=== PATIENT | female | born 1980 | race Caucasian/White ===

== ENCOUNTER 2016-11-30 17:20 | Emergency (ER) | payer SELFPAY ==
[~2016-11-30] VITALS: Ht 165.1 cm; Wt 93.0 kg
[~2016-11-30 17:20] MED LIST: ALBU18HF IH; BENZ100C PO; FLUT12AE2 IH
[2016-11-30 17:30] VITALS: BP 132/79
--- NOTE | 2016-11-30 18:13 | ED.ADGEN ---
Past History Past Medical History: No Pertinent History Past Surgical History: Other Alcohol Use: None Drug Use: None Adult General Chief Complaint Chief Complaint Abdominal pain HPI HPI Patient is a 36 year old female who presents with left upper quadrant pain. She states that she has a history of GERD and has been under a lot of stress recently with her boyfriend breaking up with her and taking her stuff. She states this is symptoms been going on for several weeks and the last 2 days gotten worse. Last night she vomited several times. She denies any blood in her vomit, she denies any diarrhea. She states the pain is in the left upper quadrant and can wrap around to her back. She does have a history kidney stones. She denies any fevers chills or midline back pain. She states she doesn' t have any insurance and doesn't want a large bill. She states she's been taking [id number] antacids and nothing can make this better. Review of Systems Review of Systems Constitutional: Denies fever or chills [] Eyes: Denies change in visual acuity, redness, or eye pain [] HENT: Denies nasal congestion or sore throat [] Respiratory: Denies cough or shortness of breath [] Cardiovascular: No additional information not addressed in HPI [] GI: Deniesbloody stools or diarrhea, positive for abdominal pain, nausea, vomiting, : Denies dysuria or hematuria [] Musculoskeletal: Denies back pain or joint pain [] Integument: Denies rash or skin lesions [] Neurologic: Denies headache, focal weakness or sensory changes [] Endocrine: Denies polyuria or polydipsia [] Current Medications Current Medications Current Medications Medications (Trade) Dose Ordered Sig/Vi Start Time Stop Time Status Last Admin Dose Admin Multi-Ingredient Mouthwash/Gargle (Gi Cocktail) 20 ml 1X ONCE 11/30/16 18:15 11/30/16 18:16 DC 11/30/16 18:15 20 ML Allergies Allergies Allergies Coded Allergies Type Severity Reaction Last Updated Verified acetaminophen Allergy Unknown 03/10/16 Yes oxycodone Allergy Unknown 03/10/16 Yes paroxetine Allergy Unknown 03/10/16 Yes tranexamic acid Allergy Unknown 03/10/16 Yes Physical Exam Physical Exam Constitutional: Well developed, well nourished, no acute distress, non-toxic appearance. [] HENT: Normocephalic, atraumatic, bilateral external ears normal, oropharynx moist, no oral exudates, nose normal. [] Eyes: PERRLA, EOMI, conjunctiva normal, no discharge. [] Neck: Normal range of motion, no tenderness, supple, no stridor. [] Cardiovascular:Heart rate regular rhythm, no murmur [] Lungs & Thorax: Bilateral breath sounds clear to auscultation [] Abdomen: Bowel sounds normal, soft, mild tenderness palpation left upper quadrant, no rebound or guarding, no masses, no pulsatile masses. [] Skin: Warm, dry, no erythema, no rash. [] Back: Paraspinal back pain over the lumbar area, no midline tenderness. Tenderness, no CVA tenderness. [] Extremities: No tenderness, no cyanosis, no clubbing, ROM intact, no edema. [] Neurologic: Alert and oriented X 3, normal motor function, normal sensory function, no focal deficits noted. [] Psychologic: Affect normal, judgement normal, mood normal. [] Current Patient Data Vital Signs Vital Signs Date Time Temp Pulse Resp B/P (MAP) Pulse Ox O2 Delivery O2 Flow Rate FiO2 11/30/16 17:30 98.3 104 16 97 Room Air Lab Results Laboratory Tests Test 11/30/16 17:30 11/30/16 18:17 Urine Collection Type Unknown Urine Color Yellow Urine Clarity Hazy Urine pH 6.0 Urine Specific [place] >=1.030 Urine Protein 30 mg/dl (NEG-TRACE) Urine Glucose (UA) Neg mg/dL (NEG) Urine Ketones (Stick) Trace mg/dL (NEG) Urine Blood Neg (NEG) Urine Nitrite Neg (NEG) Urine Bilirubin Neg (NEG) Urine Urobilinogen Dipstick 0.2 mg/dL (0.2 mg/dL) Urine Leukocyte Esterase Neg (NEG) Urine RBC 1-2 /HPF (0-2) Urine WBC 5-10 /HPF (0-4) Urine Squamous Epithelial Cells Mod /LPF Urine Bacteria 0 /HPF (0-FEW) Urine Mucus Marked /LPF Urine Opiates Screen Neg (NEG) Urine Methadone Screen Neg (NEG) Urine Barbiturates Neg (NEG) Urine Phencyclidine Screen Neg (NEG) Urine Amphetamine/Methamphetamine Neg (NEG) Urine Benzodiazepines Screen Neg (NEG) Urine Cocaine Screen Neg (NEG) Urine Cannabinoids Screen Neg (NEG) Urine Ethyl Alcohol Neg (NEG) White Blood Count 9.2 x10^3/uL (4.0-11.0) Red Blood Count 4.26 x10^6/uL (3.50-5.40) Hemoglobin 13.4 g/dL (12.0-15.5) Hematocrit 38.9 % (36.0-47.0) Mean Corpuscular Volume 91 fL (79-100) Mean Corpuscular Hemoglobin 31 pg (25-35) Mean Corpuscular Hemoglobin Concent 34 g/dL (31-37) Red Cell Distribution Width 13.4 % (11.5-14.5) Platelet Count 257 x10^3/uL (140-400) Neutrophils (%) (Auto) 78 % (31-73) H Lymphocytes (%) (Auto) 15 % (24-48) L Monocytes (%) (Auto) 6 % (0-9) Eosinophils (%) (Auto) 0 % (0-3) Basophils (%) (Auto) 1 % (0-3) Neutrophils # (Auto) 7.2 x10^3uL (1.8-7.7) Lymphocytes # (Auto) 1.4 x10^3/uL (1.0-4.8) Monocytes # (Auto) 0.5 x10^3/uL (0.0-1.1) Eosinophils # (Auto) 0.0 x10^3/uL (0.0-0.7) Basophils # (Auto) 0.0 x10^3/uL (0.0-0.2) Sodium Level 141 mmol/L (136-145) Potassium Level 4.1 mmol/L (3.5-5.1) Chloride Level 105 mmol/L (98-107) Carbon Dioxide Level 24 mmol/L (21-32) Anion Gap 12 (6-14) Blood Urea Nitrogen 12 mg/dL (7-20) Creatinine 0.9 mg/dL (0.6-1.0) Estimated GFR (Cockcroft-Gault) 71.7 Glucose Level 97 mg/dL (70-99) Calcium Level 8.8 mg/dL (8.5-10.1) Total Bilirubin 0.9 mg/dL (0.2-1.0) Direct Bilirubin 0.2 mg/dL (0.0-0.2) Aspartate Amino Transferase (AST) 11 U/L (15-37) L Alanine Aminotransferase (ALT) 20 U/L (14-59) Alkaline Phosphatase 75 U/L (46-116) Creatine Kinase 40 U/L (26-192) Creatine Kinase MB (Mass) < 0.5 ng/mL (0.0-3.6) Creatine Kinase MB Relative Index 1.3 % (0-4) Troponin I Quantitative < 0.017 ng/mL (0-0.055) Total Protein 7.3 g/dL (6.4-8.2) Albumin 3.9 g/dL (3.4-5.0) Lipase 124 U/L (73-393) EKG EKG [] Radiology/Procedures Radiology/Procedures [] Course & Med Decision Making Course & Med Decision Making Pertinent Labs and Imaging studies reviewed. (See chart for details) GI cocktail didn't really help. Her labs do not show any acute abnormalities. We 'll discharge with cyclobenzaprine for her back pain suggesting muscle skeletal in nature, sulfa Carafate and Zofran. Patient's will need to follow-up with GI doctor but she doesn't have any insurance this time and states she was hold off until she gets insurance before she sees anybody. Return precautions given she is agreeable Plan B discharged in stable condition this time. Final Impression Final Impression Abdominal pain Problems: Dragon Disclaimer Dragon Disclaimer This electronic medical record was generated, in whole or in part, using a voice recognition dictation system. MARZENA PEREA MD Nov 30, 2016 18:13
[2016-11-30] MEDS ORDERED: LIDO:MAALOX 1:1 20 ML SINGLE DOSE PO ONE (18:15)
--- NOTE | 2016-11-30 18:29 | EKG ---
[address] [address] Test Date: 2016-11-30 Test Time: 18:26:47 Pat Name: NAYANA WANG Department: Room: Gender: F [employer]: BRISSA : 1980 Requested By: MARZENA PEREA Order Number: [id number] Reading MD: Giorgio Ellis Measurements Intervals [place] Rate: 78 P: 38 [place]: 134 QRS: 31 QRSD: 82 T: 27 QT: 354 QTc: 407 Interpretive Statements SINUS RHYTHM NONSPECIFIC ST-T WAVE CHANGES. RI6.01 Unconfirmed report Compared to ECG 03/10/2016 10:06:50 No significant changes Electronically Signed On 12-03-2016 9:53:36 CDT by Giorgio Ellis
[2016-11-30 18:30] LABS: BASO % 1 % (0-3); EOS % 0 % (0-3); HEMATOCRIT 38.9 % (36.0-47.0); HEMOGLOBIN 13.4 g/dL (12.0-15.5); LYMPH # 1.4 x10^3/uL (1.0-4.8); LYMPH % 15 % (24-48); MEAN CORPUSCULAR HEMOGLOBIN 31 pg (25-35); MEAN CORPUSCULAR HGB CONC 34 g/dL (31-37); MEAN CORPUSCULAR VOLUME 91 fL (79-100); MONO # 0.5 x10^3/uL (0.0-1.1); MONO % 6 % (0-9); NEUT # 7.2 x10^3uL (1.8-7.7); NEUT % 78 % (31-73); PLATELET COUNT 257 x10^3/uL (140-400); RED BLOOD COUNT 4.26 x10^6/uL (3.50-5.40); RED CELL DISTRIBUTION WIDTH 13.4 % (11.5-14.5); WHITE BLOOD COUNT 9.2 x10^3/uL (4.0-11.0)
[2016-11-30 18:33] LABS: BILIRUBIN,URINE NEG (NEG); CLARITY,URINE HAZY; COLOR,URINE YELLOW; GLUCOSE,URINE NEG (NEG); NITRITE,URINE NEG (NEG); UROBILINOGEN,URINE 0.2 mg/dL (0.2 mg/dL)
[2016-11-30 18:34] LABS: BACTERIA,URINE 0 /HPF (0-FEW); SQUAMOUS EPITHELIAL CELL,UR MOD /LPF
[2016-11-30 18:40] LABS: BARBITURATES NEG (NEG); BENZODIAZEPINES NEG (NEG); CANNABINOIDS NEG (NEG); COCAINE NEG (NEG); METHADONE NEG (NEG); OPIATES NEG (NEG); PHENCYCLIDINE NEG (NEG)
[2016-11-30 18:41] LABS: AMPHETAMINE/METHAMPHETAMINE NEG (NEG)
[2016-11-30 18:54] LABS: ALBUMIN 3.9 g/dL (3.4-5.0); ALK PHOS 75 U/L (46-116); ALT (SGPT) 20 U/L (14-59); ANION GAP 12 (6-14); AST (SGOT) 11 U/L (15-37); BLOOD UREA NITROGEN 12 mg/dL (7-20); CALCIUM 8.8 mg/dL (8.5-10.1); CARBON DIOXIDE 24 mmol/L (21-32); CHLORIDE 105 mmol/L (98-107); CREATINE KINASE 40 U/L (26-192); CREATININE 0.9 mg/dL (0.6-1.0); DIRECT BILIRUBIN 0.2 mg/dL (0.0-0.2); GFR 71.7; GLUCOSE 97 mg/dL (70-99); LIPASE 124 U/L (73-393); POTASSIUM 4.1 mmol/L (3.5-5.1); SODIUM 141 mmol/L (136-145); TOTAL BILIRUBIN 0.9 mg/dL (0.2-1.0); TOTAL PROTEIN 7.3 g/dL (6.4-8.2)
[2016-11-30] MEDS ORDERED: SUCR1TAB PO (20:03)
[2016-11-30] MEDS ORDERED: ONDA4TAB10 SL (20:03)
[2016-11-30] MEDS ORDERED: CYCL-331 PO (20:03)
== END 2016-11-30 20:10 | disposition home or self-care (01) ==
LOC: ER 17:20
DX: R10.12 Left upper quadrant pain (principal); Z88.6 Allergy status to analgesic agent; Z88.8 Allergy status to other drugs, medicaments and biological substances
CPT/HCPCS: 36415; 80048; 80076; 80305; 80320; 81001; 82553; 83690; 84484; 85027; 87086; 93005; G0481; 99285-25

== ENCOUNTER 2017-03-29 00:34 | Emergency (ER) | payer SELFPAY ==
[~2017-03-29] VITALS: Ht 165.1 cm; Wt 93.0 kg
[2017-03-29 00:34] VITALS: BP 128/76
[~2017-03-29 00:34] MED LIST changes: +CYCL-331 PO; +ONDA4TAB10 SL; +SUCR1TAB PO
--- NOTE | 2017-03-29 02:23 | PHYS DOC ---
General Chief Complaint: LOWEREXTREMITY INJURY Stated Complaint: FOOT INJURY Time Seen by MD: 00:34 Source: patient Exam Limitations: no limitations Problems: History of Present Illness Initial Comments Pt is 36/F to ED c/o left foot pain. Pt states tonight she jumped out of pickup truck bed landing on both feet. She felt sudden severe pain at her left foot and heard a pop. Complains of severe left foot pain across dorsal arch and at lateral aspect. Mild ecchymoses noted , no actual swelling. Can't bear weight due to pain, denies other injury. Although she says she can't move her foot or toes she does move all in response to pain during exam. No prearrival treatment no prior left foot injury. Refuses pain meds "I don't like the way they make me feel." Onset: just prior to arrival Severity: moderate Pain/Injury Location: left foot Method of Injury: other Modifying Factors: worse with jarring, worse with movement, improves with rest Allergies: Coded Allergies: acetaminophen (Verified Allergy, Unknown, 03/10/16) oxycodone (Verified Allergy, Unknown, 03/10/16) paroxetine (Verified Allergy, Unknown, 03/10/16) tranexamic acid (Verified Allergy, Unknown, 03/10/16) Past Medical History Medical History: no pertinent history Surgical History: noncontributory Social History Smoker: cigarettes Alcohol: occasionally Drugs: none Review of Systems Constitutional: denies chills, denies fever Respiratory: denies cough, denies shortness of breath Cardiovascular: denies chest pain, denies palpitations Gastrointestinal: denies nausea, denies vomiting Genitourinary: denies frequency, denies hematuria Musculoskeletal: see HPI Skin: see HPI Psychiatric/Neurological: see HPI Physical Exam General Appearance: no apparent distress, obese Neck: non-tender, supple Cardiovascular/Respiratory: normal peripheral pulses, no respiratory distress Back: no CVA tenderness, no vertebral tenderness Feet: left foot other (ecchymoses noted dorsal foot/lateral along with TTP. Decreased ROM noted due to pain no deformity) Neurologic/Tendon: normal sensation, normal motor functions, normal tendon functions, responds to pain, no evidence tendon injury Psychiatric: alert, oriented x 3 Skin: warm/dry Orders, Labs, Meds L Foot/Ankle: mildly displaced proximal 5th MT fracture, questionable anterior talar fracture. Interpreted by me. Advised to stop smoking. Departure Time of Disposition: 02:19 Disposition: 01 HOME, SELF-CARE Diagnosis: Proximal 5th metatarsal fracture Condition: GOOD Patient Instructions: Foot Fracture-Brief, RICE - Routine Care for Injuries, [id number] Additional Instructions: RICE, see handout. Nonweight bearing crutches only until clear by orthopedics. OTC tylenol/ibuprofen as needed for discomfort. As discussed, these injuries can be difficult to manage due to the blood supply and sometimes require surgical intervention. You will need to follow up with an orthopedic surgeon. Asael Barreto and Cristy [phone] call Thursday morning to schedule appointment. At your request, information regarding [facility] will be given to you at discharge. Use those resources if needed. Return to ED with new or changing symptoms. LYUDMILA BANUELOS DO Mar 29, 2017 02:23
--- NOTE | 2017-03-29 07:59 | RAD ---
Left foot 3 views. History: Pain after a fall 3 views were taken of the left foot. There is a small mildly displaced fracture at the proximal and of the fifth metatarsal. No other fracture or osseous abnormality is noted. Impression: 1. Small avulsion fracture at the proximal end of the left fifth metatarsal.
--- NOTE | 2017-03-29 08:01 | RAD ---
Left ankle 3 views. History: Fall out of a truck, foot and ankle pain 3 views were taken of the left ankle. There is not evidence of a fracture of the ankle. There is a small evulsion fracture at the fifth metatarsal. Impression: 1. No left ankle fracture noted.
== END 2017-03-29 02:44 | disposition home or self-care (01) ==
LOC: ER 00:34
DX: S92.352A Displaced fracture of fifth metatarsal bone, left foot, initial encounter for closed fracture (principal); F17.210 Nicotine dependence, cigarettes, uncomplicated; Z88.6 Allergy status to analgesic agent; Z88.8 Allergy status to other drugs, medicaments and biological substances; W17.89XA Other fall from one level to another, initial encounter; Y93.39 Activity, other involving climbing, rappelling and jumping off; Y99.8 Other external cause status; Y92.89 Other specified places as the place of occurrence of the external cause
CPT/HCPCS: 73610; 73630; 99284

== ENCOUNTER 2019-08-24 17:58 | Emergency (ER) | payer SELFPAY ==
[~2019-08-24] VITALS: Ht 165.1 cm; Wt 93.0 kg
[~2019-08-24 17:58] MED LIST changes: -ALBU18HF IH; +ALBU2.5V8 IH
[2019-08-24 18:26] VITALS: BP 117/59
[2019-08-24] MEDS ORDERED: FAMO-63 PO (18:55)
[2019-08-24] MEDS ORDERED: HYDR-2868 PO (18:55)
[2019-08-24] MEDS ORDERED: PRED20TA PO (18:55)
--- NOTE | 2019-08-24 18:56 | PHYS DOC ---
Past History Past Medical History: Asthma, GERD Past Surgical History: , Tonsillectomy, Other Smoking: Non-smoker Alcohol Use: Occasionally Drug Use: None Adult General Chief Complaint Chief Complaint: SKIN PROBLEM HPI HPI 39-year-old female presents with report of pruritic rash primarily to arms and trunk and legs which is been ongoing for the past 2 months. Patient denies known exposure. Denies fever or chills. Reports his been seen at a outside emergency department in the past for similar and was given Benadryl and steroid without subsequent improvement. Patient reports she currently does not have a PCP to follow with. Reports she has tried changing her body wash at home without improvement. Reports does have animals and has checked them for fleas. Reports no other sick contacts at home. Patient does report history of asthma. Denies recent medications, new detergents, new shampoos, etc. Review of Systems Review of Systems Constitutional: Denies fever or chills Eyes: Denies redness or eye pain HENT: Denies nasal congestion or sore throat Respiratory: Denies cough or shortness of breath Cardiovascular: Denies chest pain or palpitations GI: Denies abdominal pain, nausea, or vomiting : Denies dysuria or hematuria Musculoskeletal: Denies back pain or joint pain Integument: Reports itchy rash; denies skin lesions Neurologic: Denies headache, focal weakness or sensory changes Complete systems were reviewed and found to be within normal limits, except as documented in this note. Allergies Allergies Allergies Coded Allergies Type Severity Reaction Last Updated Verified acetaminophen Allergy Unknown 03/10/16 Yes oxycodone Allergy Unknown 03/10/16 Yes paroxetine Allergy Unknown 03/10/16 Yes tranexamic acid Allergy Unknown 03/10/16 Yes Physical Exam Physical Exam Constitutional: Well developed, well nourished, no acute distress, non-toxic appearance HENT: Normocephalic, atraumatic, oropharynx moist Eyes: Conjunctiva normal, no discharge Neck: Normal range of motion, no tenderness, supple Cardiovascular: Heart rate normal, regular rhythm Lungs & Thorax: Bilateral breath sounds clear to auscultation, no wheezing Abdomen: Soft, no tenderness Skin: Warm, dry, maculopapular rash to arms and anterior trunk and legs, self excoriations noted, no induration or fluctuance Extremities: No tenderness, ROM intact, no edema Neurologic: Alert and oriented X 3, no focal deficits noted Psychologic: Affect normal, judgment normal Current Patient Data Vital Signs Vital Signs Date Time Temp Pulse Resp B/P (MAP) Pulse Ox O2 Delivery O2 Flow Rate FiO2 08/24/19 18:26 98.6 76 16 117/59 (78) 99 Room Air EKG EKG [] Radiology/Procedures Radiology/Procedures [] Course & Med Decision Making Course & Med Decision Making Patient presents with pruritic rash that is been ongoing for the past 2 months. No signs of cellulitis or abscess. Does not appear to be an infestation. Sym ptomatic treatment provided with oral steroid, Atarax, and Pepcid. Patient advised to use Aquaphor on rash to protect skin. Patient also advised to trial new detergents. Patient stable for discharge with outpatient follow-up with PCP/dermatology. Free clinic and dermatology referrals provided. Discussed findings and plan with patient and family, who acknowledge understanding and agreement. Dragon Disclaimer Dragon Disclaimer This electronic medical record was generated, in whole or in part, using a voice recognition dictation system. Departure Departure: Impression: Primary Impression: Pruritic rash Disposition: HOME, SELF-CARE Condition: STABLE Referrals: PCP,JARRED (PCP) Patient Instructions: Rash, [id number] Additional Instructions: Use Aquaphor to rash, twice daily. Call Dr. Ruffin (dermatology) to be re-evaluated at [facility] Hydralazine Hcl (HYDRALAZINE HCL) 25 Mg Tablet 1 TAB PO TID PRN for ITCHING, #20 TAB Prov: JOHN GARCIA DO 08/24/19 Famotidine (PEPCID) 20 Mg Tablet 1 TAB PO BID for rash for 5 Days, #10 TAB Prov: JOHN GARCIA DO 08/24/19 Prednisone (PREDNISONE) 20 Mg Tablet 2 TAB PO DAILY for Rash, #8 TAB Start this prescription tomorrow, 08/25/19 Prov: JOHN GARCIA DO 08/24/19 JOHN GARCIA DO Aug 24, 2019 18:56
[2019-08-24] MEDS ORDERED: DEXAMETHASONE 4 MG TABLET PO ONE (19:00)
[2019-08-24] MEDS ORDERED: FAMOTIDINE 20 MG TABLET PO ONE (19:30)
[2019-08-24] MEDS ORDERED: hydrOXYzine HCL 25 MG TABLET PO ONE (19:30)
== END 2019-08-24 19:08 | disposition home or self-care (01) ==
LOC: ER 17:58
DX: L29.9 Pruritus, unspecified (principal); R21 Rash and other nonspecific skin eruption; J45.909 Unspecified asthma, uncomplicated; K21.9 Gastro-esophageal reflux disease without esophagitis; Z88.5 Allergy status to narcotic agent; Z88.8 Allergy status to other drugs, medicaments and biological substances
CPT/HCPCS: 99284; J8540